=== PATIENT | female | born 1955 | race Caucasian/White ===

== ENCOUNTER 2017-03-15 06:27 | Day surgery (SDC) | payer BC ==
[~2017-03-15 06:27] MED LIST: Dextrose 5%-0.45% NaCl 1,000 ML IV SCH; Midazolam 1 MG/ML 2 ML SDV ONE; Sodium Chloride 0.9% 10 ML Syringe FLUSH PRN; fentaNYL 100 MCG/2 ML SDV ONE
[2017-03-15] MEDS ORDERED: fentaNYL 100 MCG/2 ML SDV IV ONE ×3 (06:28→07:39)
[2017-03-15] MEDS ORDERED: Midazolam 1 MG/ML 2 ML SDV IV ONE ×2 (06:28→07:39)
[2017-03-15 10:01] VITALS: BP 140/59
--- NOTE | 2017-03-15 13:03 | OR ---
DATE: 03/15/2017 PROCEDURE: Esophagogastroduodenoscopy. INSTRUMENT USED: GIF-H180 Olympus video panendoscope. PREMEDICATIONS: No oral topical anesthesia used. Fentanyl 100 mcg intravenous, Versed 1 mg intravenous. The procedure was done under pulse oximetry, BP recording, and cardiac monitoring. INDICATION: The patient with known chronic liver disease and esophageal varices, in list for liver transplantation. Surveillance esophagogastroduodenoscopy is performed for assessment of esophageal varices, as to any therapy needed, biopsies as indicated, hemostasis therapy as needed. DESCRIPTION OF PROCEDURE: The scope was passed with ease. Adequate visualization of the esophagus was made from proximal to distal areas. No upper esophageal lesions identified. No distal esophageal stricture. No evidence of esophagitis by [place] criteria. No esophageal polyp or tumor mass identified. Prominent uphill esophageal varices were noted without bleeding from them. Gastric fundus examination by retroflexion showed no polypoid lesions. Mucosal abnormalities noted were consistent with portal hypertensive gastropathy. No gastric ulcer, malignant mass, or vascular ectasia identified. Duodenal bulb showed no ulcer. Visualized 2nd part of the duodenum was unremarkable. No bleeding was noted from any of the visualized areas at the completion of examination. Photographs were taken of the duodenal bulb, gastric antrum, fundus, and distal esophagus. IMPRESSION: 1. Portal hypertensive gastropathy. 2. Uphill esophageal varices. The patient tolerated the procedure well. [facility] /[id number]
--- NOTE | 2017-03-15 14:27 | LETTER ---
03/15/2017 [facility] Liver Transplantation [address] [place] [address] RE: LESLIE DAJA A : 1955 Dear Doctor: Daja Brannon had esophagogastroduodenoscopy done this morning and she tolerated the procedure well. I herewith send a copy of the endoscopy note and photographs for your review. Thank you. Sincerely, [facility] /[id number]
== END 2017-03-15 09:55 | disposition home or self-care (01) ==
LOC: DL.ENDO 06:27
PROVIDERS: ATTEND Internal Medicine Gastroenterology
DX: K76.6 Portal hypertension (principal); K31.89 Other diseases of stomach and duodenum; I85.10 Secondary esophageal varices without bleeding; Z76.82 Awaiting organ transplant status
CPT/HCPCS: 43235; J2250; J3010; J7042

== ENCOUNTER 2017-08-05 12:57 | Emergency (ER) | payer BC ==
[2017-08-05 13:41] LABS: ANION GAP 8.7; CHLORIDE,CL 109 mmol/L (101-111); SODIUM,NA 138 mmol/L (135-145)
--- NOTE | 2017-08-05 13:58 | EDM.PDOC ---
ED HPI GENERAL MEDICAL PROBLEM - General Chief Complaint: Chest Pain Stated Complaint: LEFT ARM NUMB, CHEST DISCOMFORT Time Seen by Provider: 08/05/17 13:40 Source of Information: Reports: Patient History Limitations: Reports: No Limitations - History of Present Illness INITIAL COMMENTS - FREE TEXT/NARRATIVE: This 61 yo female patient reports to the ED with left arm numbness and tingling along with intermittent chest pains. The patient reports that she is on a liver transplant list and has been experiencing intermittent swelling. The patient reports her symptoms started last night. The patient did contact her provider and was advised to come to the Ed. Onset Date: 08/04/17 Duration: Constant Location: Reports: Chest, Upper Extremity, Left Quality: Reports: Ache, Dull Severity: Mild Improves with: Reports: None Worsens with: Reports: None Context: Reports: Other Associated Symptoms: Reports: Chest Pain Left Arm Pain Score (Numeric/FACES): 2 - Related Data Allergies Allergy/AdvReac Type Severity Reaction Status Date / Time benzonatate Allergy Other Verified 03/15/17 06:53 [From Magaly Day] cefprozil Allergy Nausea Verified 03/15/17 06:53 ceftriaxone sodium Allergy Confusion Verified 03/15/17 06:53 [From Rocephin] Home Meds: Home Meds Calcium Carb & Citrate/Vit D3 [Citracal + D ER] 1 tab PO DAILY 06/23/15 [History ] Cetirizine [ZyrTEC] 10 mg PO DAILY 06/23/15 [History] Cranberry 2 tab PO DAILY 06/23/15 [History] Esomeprazole [NexIUM] 40 mg PO BID 06/23/15 [History] Estradiol [Vagifem] 10 mcg VAG ASDIRECTED 06/23/15 [History] Lactulose [Constulose] 30 ml PO BEDTIME 06/23/15 [History] Levothyroxine [Synthroid] 100 mcg PO ACBREAKFAST 06/23/15 [History] [place]-3 Fatty Acids/Fish Oil [Cvs Fish Oil 1,000 mg Softgel] 1 tab PO DAILY 08/03 [History] Albuterol [Proair HFA] 2 inh INH Q6H PRN 08/02/15 [History] Spironolactone [Aldactone] 50 mg PO DAILY 12/12/15 [History] Ranitidine [Zantac] 150 mg PO DAILY 03/10/16 [History] Cholecalciferol (Vitamin D3) [Vitamin D3] 125 mg PO .3TIMESWEEKLY 03/11/17 [ History] Fluticasone Propionate [Flonase] 2 sprays INH DAILY 03/11/17 [History] Nadolol [Corgard] 20 mg PO DAILY 03/11/17 [History] Rifaximin [Xifaxan] 1 tab PO DAILY 03/11/17 [History] Vitamin A 1 tab PO DAILY 03/11/17 [History] Past Medical History HEENT History: Reports: Allergic Rhinitis, Impaired Vision Other HEENT History: WEARS CONTACTS Cardiovascular History: Reports: High Cholesterol, Hypertension, Other (See Below) Other Cardiovascular History: DIASTOLIC DYSFUNCTION Respiratory History: Reports: Sleep Apnea, SOB, Other (See Below) Other Respiratory History: ON CPAP Gastrointestinal History: Reports: Cirrhosis, GERD, Other (See Below) Other Gastrointestinal History: abnormal liver studies; PORTAL HYPERTENSION Genitourinary History: Reports: UTI, Recurrent LINING LAYER History: Reports: Prolapsed Uterus, Other (See Below) Other OB/BYN History: POST MENOPAUSAL HORMONE REPLACEMENT THERAPY Musculoskeletal History: Reports: Arthritis, Fibromyalgia Neurological History: Reports: None Psychiatric History: Reports: Anxiety Endocrine/Metabolic History: Reports: Hypothyroidism, Other (See Below) Other Endocrine/Metabolic History: IMPAIRED FASTING BLOOD SUGAR Hematologic History: Reports: None Immunologic History: Reports: Immunosuppression Oncologic (Cancer) History: Reports: None Dermatologic History: Reports: Other (See Below) Other Dermatologic History: FOLLICULITIS; CYSTOCELE - Infectious Disease History Infectious Disease History: Reports: Chicken Pox, Measles, Shingles - Past Surgical History HEENT Surgical History: Reports: None Cardiovascular Surgical History: Reports: None Respiratory Surgical History: Reports: None GI Surgical History: Reports: Appendectomy, Colonoscopy, EGD Female Surgical History: Reports: Hysterectomy, Salpingo-Oophorectomy Musculoskeletal Surgical History: Reports: Joint Replacement Social & Family History - Family History Family Medical History: Noncontributory - Tobacco Use Smoking Status *Q: Never Smoker Second Hand Smoke Exposure: No - Caffeine Use Caffeine Use: Reports: None - Recreational Drug Use Recreational Drug Use: No ED ROS GENERAL - Review of Systems Review Of Systems: ROS reveals no pertinent complaints other than HPI. ED EXAM, GENERAL - Physical Exam Exam: See Below Exam Limited By: No Limitations General Appearance: Alert, WD/WN, No Apparent Distress Eye Exam: Bilateral Eye: EOMI, Normal Inspection, PERRL Ears: Normal External Exam, Normal Canal, Hearing Grossly Normal, Normal TMs Nose: Normal Inspection, Normal Mucosa, No Blood Throat/Mouth: Normal Inspection, Normal Lips, Normal Teeth, Normal Gums, Normal Oropharynx, Normal Voice, No Airway Compromise Head: Atraumatic, Normocephalic Neck: Normal Inspection, Supple, Non-Tender, Full Range of Motion Respiratory/Chest: No Respiratory Distress, Lungs Clear, Normal Breath Sounds, No Accessory Muscle Use, Chest Non-Tender Cardiovascular: Normal Peripheral Pulses, Regular Rate, Rhythm, No Edema, No Gallop, No JVD, No Murmur, No Rub GI/Abdominal: Normal Bowel Sounds, Soft, Non-Tender, No Organomegaly, No Distention, No Abnormal Bruit, No Mass (Female) Exam: Deferred Rectal (Female) Exam: Deferred Back Exam: Normal Inspection, Full Range of Motion, NT Extremities: Normal Inspection, Normal Range of Motion, Non-Tender, Normal Capillary Refill, No Pedal Edema Neurological: Alert, Oriented, CN II-XII Intact, Normal Cognition, Normal Gait, Normal Reflexes, No Motor/Sensory Deficits Psychiatric: Normal Affect, Normal Mood Skin Exam: Warm, Dry, Intact, Normal Color, No Rash Lymphatic: No Adenopathy Course - Vital Signs Last Recorded V/S: Last Vital Signs Temp 36.9 C 08/05/17 13:05 Pulse 63 08/05/17 13:05 Resp 17 08/05/17 13:05 BP 108/89 08/05/17 13:05 Pulse Ox 99 08/05/17 13:05 - Orders/Labs/Meds Orders: Active Orders 24 hr Category Date Time Status EKG Documentation Completion [RC] URGENT Care 08/05/17 13:02 Ordered Labs: Laboratory Tests 08/05/17 08/05/17 08/05/17 Range/Units 13:12 13:12 13:12 WBC 5.0 (5.0-10.0) 10^3/uL RBC 2.81 L (4.2-5.4) 10^6/uL Hgb 9.8 L (12.0-16.0) g/dL Hct 29.3 L (37.0-47.0) % MCV 104.3 H D (80-100) fL MCH 34.9 H (27.0-34.0) pg MCHC 33.4 (33.0-35.0) g/dL Plt Count 70 L (150-450) 10^3/uL Neut % (Auto) 48.4 (42.2-75.2) % Lymph % (Auto) 31.9 (20.5-50.1) % Jay % (Auto) 14.5 H (2-8) % Eos % (Auto) 4.6 H (1.0-3.0) % Baso % (Auto) 0.6 (0.0-1.0) % PT 18.7 H (9.0-12.0) SEC INR 1.9 H (0.9-1.2) Sodium (135-145) mmol/L Potassium (3.6-5.0) mmol/L Chloride (101-111) mmol/L Carbon Dioxide (21.0-31.0) mmol/L Anion Gap BUN (7-18) mg/dL Creatinine (0.6-1.3) mg/dL Est Cr Clr Drug Dosing mL/min Estimated GFR (MDRD) BUN/Creatinine Ratio Glucose (74-105) mg/dL Calcium (8.4-10.2) mg/dl Total Bilirubin (0.2-1.0) mg/dL AST (10-42) IU/L ALT (10-60) IU/L Alkaline Phosphatase (42-121) IU/L Ammonia 49 H (11-35) umol/L Troponin I (0.00-0.02) ng/ml Total Protein (6.7-8.2) g/dl Albumin (3.2-5.5) g/dl Globulin Albumin/Globulin Ratio //18 Range/Units 13:12 WBC (5.0-10.0) 10^3/uL RBC (4.2-5.4) 10^6/uL Hgb (12.0-16.0) g/dL Hct (37.0-47.0) % MCV (80-100) fL MCH (27.0-34.0) pg MCHC (33.0-35.0) g/dL Plt Count (150-450) 10^3/uL Neut % (Auto) (42.2-75.2) % Lymph % (Auto) (20.5-50.1) % Jay % (Auto) (2-8) % Eos % (Auto) (1.0-3.0) % Baso % (Auto) (0.0-1.0) % PT (9.0-12.0) SEC INR (0.9-1.2) Sodium 138 (135-145) mmol/L Potassium 3.7 (3.6-5.0) mmol/L Chloride 109 (101-111) mmol/L Carbon Dioxide 24.0 (21.0-31.0) mmol/L Anion Gap 8.7 BUN 9 (7-18) mg/dL Creatinine 0.5 L (0.6-1.3) mg/dL Est Cr Clr Drug Dosing 103.63 mL/min Estimated GFR (MDRD) > 60 BUN/Creatinine Ratio 18.00 Glucose 84 (74-105) mg/dL Calcium 8.7 (8.4-10.2) mg/dl Total Bilirubin 6.3 H (0.2-1.0) mg/dL AST 64 H (10-42) IU/L ALT 27 (10-60) IU/L Alkaline Phosphatase 210 H (42-121) IU/L Ammonia (11-35) umol/L Troponin I < 0.02 (0.00-0.02) ng/ml Total Protein 5.7 L (6.7-8.2) g/dl Albumin 2.0 L (3.2-5.5) g/dl Globulin 3.7 Albumin/Globulin Ratio 0.54 Departure - Departure Time of Disposition: 13:52 Disposition: Home, Self-Care 01 Condition: Fair Clinical Impression: Nonspecific chest pain Instructions: Nonspecific Chest Pain Forms: ED Department Discharge Care Plan Goals: The patient was advised of the examination, EKG and lab results during the visit. The patient was encouraged to continue to monitor her symptoms. If the patient has any additional symptoms or concerns, the patient should follow-up with her primary care facility or return to the emergency department. - My Orders Last 24 Hours: My Active Orders 08/05/17 13:02 EKG Documentation Completion [RC] URGENT - Assessment/Plan Last 24 Hours: My Active Orders 08/05/17 13:02 EKG Documentation Completion [RC] URGENT
[2017-08-05 14:23] VITALS: BP 135/77
--- NOTE | 2017-08-09 07:53 | EKG ---
08/05/2017- KAYA NELSON - FINDINGS: EKG per my reading, shows sinus rhythm at a rate of 60. [facility] /[id number]
== END 2017-08-05 14:20 | disposition home or self-care (01) ==
LOC: DL.ED 12:57
DX: R07.89 Other chest pain (principal); E78.00 Pure hypercholesterolemia, unspecified; I10 Essential (primary) hypertension; K21.9 Gastro-esophageal reflux disease without esophagitis; E03.9 Hypothyroidism, unspecified; Z88.1 Allergy status to other antibiotic agents; Z79.899 Other long term (current) drug therapy; Z88.8 Allergy status to other drugs, medicaments and biological substances
CPT/HCPCS: 36415; 80053; 82140; 84484; 85025; 85610; 93005; 99285

== ENCOUNTER 2021-10-09 15:18 | Emergency (ER) | payer MEDICARE, BC ==
[2021-10-09 15:39] VITALS: BP 137/78; PULSE 72
[2021-10-09 16:44] LABS: CORONAVIRUS COVID-19 NAA NEGATIVE (NEGATIVE); RESPIRATORY SYNCYTIAL VIR NAA NEGATIVE (NEGATIVE)
== END 2021-10-09 17:19 | disposition home or self-care (01) ==
LOC: DL.ED 15:18
DX: J18.9 Pneumonia, unspecified organism (principal); E03.9 Hypothyroidism, unspecified; I10 Essential (primary) hypertension; Z88.1 Allergy status to other antibiotic agents; Z88.8 Allergy status to other drugs, medicaments and biological substances; Z79.899 Other long term (current) drug therapy; Z79.82 Long term (current) use of aspirin; Z90.49 Acquired absence of other specified parts of digestive tract; Z90.710 Acquired absence of both cervix and uterus; Z20.822 Contact with and (suspected) exposure to COVID-19
CPT/HCPCS: 0241U; 99283